=== PATIENT | male | born 1950 | race Two or more races ===

== ENCOUNTER 2023-06-27 12:42 | Outpatient (CLI) | payer OTHER | END 2023-06-27 12:43 | disposition home or self-care (01) | LOC: NUCLEAR 12:42 | DX: M85.80 Other specified disorders of bone density and structure, unspecified site (principal) ==

== ENCOUNTER 2024-12-16 07:09 | Outpatient (CLI) | payer OTHER | END 2024-12-16 07:10 | disposition home or self-care (01) | LOC: NUCLEAR 07:09 | PROVIDERS: ATTEND Internal Medicine | DX: I20.9 Angina pectoris, unspecified (principal) ==